=== PATIENT | female | born 1955 | race Caucasian/White ===

== ENCOUNTER 2022-06-07 09:26 | Outpatient (CLI) | payer OTHER | END 2022-06-07 09:36 | disposition home or self-care (01) | LOC: MAMO-SONO 09:26 | PROVIDERS: ATTEND Obstetrics & Gynecology | DX: N60.11 Diffuse cystic mastopathy of right breast (principal); N60.12 Diffuse cystic mastopathy of left breast; Z12.31 Encounter for screening mammogram for malignant neoplasm of breast ==

== ENCOUNTER 2022-06-28 11:18 | Outpatient (CLI) | payer OTHER | END 2022-06-28 11:23 | disposition home or self-care (01) | LOC: NUCLEAR 11:18 | PROVIDERS: ATTEND Obstetrics & Gynecology | DX: M81.0 Age-related osteoporosis without current pathological fracture (principal) ==

== ENCOUNTER 2022-11-13 23:11 | Emergency (ER) | payer OTHER ==
[~2022-11-13] VITALS: Ht 170.2 cm; Wt 90.7 kg
[2022-11-13] MEDS ORDERED: GLIMEPIRIDE2 M1 (23:24)
[2022-11-14] MEDS ORDERED: LEVSIN/SL0.125 MG SL (02:48)
[2022-11-14] MEDS ORDERED: PEPCID40 MG PO (02:48)
[2022-11-14] MEDS ORDERED: ONDANSETRON ODT4 MG PO (02:48)
[2022-11-14] MEDS ORDERED: MIRALAX510 GM PO (02:48)
== END 2022-11-14 03:10 ==
LOC: ER 23:11
DX: K29.70 Gastritis, unspecified, without bleeding (principal); R10.13 Epigastric pain; R11.0 Nausea; E11.9 Type 2 diabetes mellitus without complications; Z88.0 Allergy status to penicillin; R61 Generalized hyperhidrosis

== ENCOUNTER 2022-11-23 08:45 | Outpatient (CLI) | payer OTHER ==
[~2022-11-23 08:45] MED LIST: GLIMEPIRIDE2 M1; LEVSIN/SL0.125 MG SL; MIRALAX510 GM PO; ONDANSETRON ODT4 MG PO; PEPCID40 MG PO
== END 2022-11-23 08:51 | disposition home or self-care (01) ==
LOC: SONOGRAMA 08:45
PROVIDERS: ATTEND Internal Medicine Gastroenterology
DX: R10.9 Unspecified abdominal pain (principal)

== ENCOUNTER 2022-11-24 14:38 | Outpatient (CLI) | payer OTHER | END 2022-11-24 14:46 | disposition home or self-care (01) | LOC: RAD 14:38 | PROVIDERS: ATTEND Internal Medicine Pulmonary Disease | DX: R06.02 Shortness of breath (principal) ==

== ENCOUNTER 2024-04-10 10:31 | Outpatient (CLI) | payer OTHER | END 2024-04-10 10:42 | disposition home or self-care (01) | LOC: RAD 10:31 | PROVIDERS: ATTEND General Practice | DX: Z12.31 Encounter for screening mammogram for malignant neoplasm of breast (principal); I42.0 Dilated cardiomyopathy; Z13.820 Encounter for screening for osteoporosis ==

== ENCOUNTER 2024-08-22 11:32 | Outpatient (CLI) | payer OTHER | END 2024-08-22 11:37 | disposition home or self-care (01) | LOC: NUCLEAR 11:32 | DX: M85.80 Other specified disorders of bone density and structure, unspecified site (principal); M81.0 Age-related osteoporosis without current pathological fracture ==

== ENCOUNTER 2025-04-15 17:24 | Inpatient (IN) | payer OTHER ==
[~2025-04-15] VITALS: Ht 170.2 cm; Wt 95.3 kg
[2025-04-15] MEDS ORDERED: MOUNJARO2.5 MG/0.5 SUBCUTANEO (17:52)
[2025-04-15] MEDS ORDERED: GLIMEPIRIDE4 M1 PO (17:52)
[2025-04-15] MEDS ORDERED: LEVOTHYROXINE50 MCG PO (17:53)
[2025-04-15] MEDS ORDERED: ATORVASTATIN CA40 MG PO (17:53)
[2025-04-15] MEDS ORDERED: XANAX2 MG PO (17:54)
[2025-04-15] MEDS ORDERED: METOCLOPRAMIDE HCL 5 MG/ML VIAL IM STA (20:33)
[2025-04-15] MEDS ORDERED: 0.9 % SODIUM CHLORIDE 1,000 ML IV STA (20:33)
[2025-04-15] MEDS ORDERED: FAMOtidine 10 MG/ML (4ML VIAL) IV PUSH STA (20:34)
[2025-04-15] MEDS ORDERED: ONDANSETRON HCL 2 MG/ML VIAL IV STA (20:34)
[2025-04-15 21:26] LABS: BASO % 0.6 % (0.1-1.2); EOS # 0.13 (0.04-0.54); EOS % 2.0 % (0.7-7.0); LYMPH # 2.69 (1.18-3.74); LYMPH % 41.5 % (19.3-53.1); MEAN PLATELET VOLUME 10.80 fl (9.4-12.4); MONO # 0.45 (0.24-0.82); MONO % 6.9 % (4.7-12.5); NEUT # 3.15 (1.56-6.13); NEUT % 48.7 % (34.0-71.1); RED CELL DISTRIBUTION WIDTH 13.0 % (11.6-14.4)
[2025-04-15 22:04] LABS: ALT/SGPT 45.0 U/L (12-78); AST/SGOT 32.0 U/L (15-37); BILIRUBIN TOTAL 0.87 mg/dL (0.3-1.2); BUN CREA RATIO 10.0 (7.0-25.0); CREATININE SERUM 0.79 mg/dL (0.55-1.02); GFR 72.16; GLOBULINA 4.2 G/DL (2.4-3.5); GLUCOSE FASTING 105.0 mg/dL (65-100); OSMOLALITY SERUM 280.0 MOSM/KG (275-295)
[2025-04-16] MEDS ORDERED: LACTOBACILLUS ACIDOPHILUS 1 CAP CAP PO STA (01:30)
[2025-04-16] MEDS ORDERED: CIPROFLOXACIN IN 5 % DEXTROSE 200 ML IV SCH ×2 (03:31→17:00)
[2025-04-16] MEDS ORDERED: FAMOTIDINE/PF 20 MG/2 ML VIAL IV PUSH STA (03:32)
[2025-04-16] MEDS ORDERED: PROMETHAZINE HCL 50 MG/ML AMPUL IM STA (03:32)
[2025-04-16] MEDS ORDERED: MORPHINE SULFATE 4 MG/ML VIAL IV STA (03:32)
[2025-04-16] MEDS ORDERED: METRONIDAZOLE/SODIUM CHLORIDE 500 MG/100 ML PIGGYBACK IV SCH (05:00)
[2025-04-16] MEDS ORDERED: PANTOPRAZOLE SODIUM 40 MG/VIAL VIAL IV ONE (11:30)
[2025-04-16] MEDS ORDERED: HYOSCYAMINE SULFATE 0.125 MG TAB.SUBL SL ONE (11:30)
[2025-04-16] MEDS ORDERED: KETOROLAC TROMETHAMINE 30 MG VIAL IV ONE (11:30)
[2025-04-16] MEDS ORDERED: FAMOTIDINE/PF 20 MG in 0.9 % SODIUM CHLORIDE 8 ML IV PUSH SCH (17:52)
[2025-04-16] MEDS ORDERED: ACETAMINOPHEN 500 MG GEL..CAP PO PRN (18:00)
[2025-04-16] MEDS ORDERED: MORPHINE SULFATE 2 MG/ML CARTRIDGE IV PRN (18:00)
[2025-04-16] MEDS ORDERED: INSULIN LISPRO 1,000 UNIT/10 ML UNITS SUBCUTANEO PRN (18:00)
[2025-04-16] MEDS ORDERED: MORPHINE SULFATE 2 MG/ML CARTRIDGE IV ONE (18:00)
[2025-04-16] MEDS ORDERED: 0.9 % SODIUM CHLORIDE 1,000 ML IV SCH (18:00)
[2025-04-16] MEDS ORDERED: KETOROLAC TROMETHAMINE 15 MG VIAL IU ONE (18:00)
[2025-04-16] MEDS ORDERED: ONDANSETRON HCL 4 MG in 0.9 % SODIUM CHLORIDE 50 ML IV PRN (18:00)
[2025-04-16] MEDS ORDERED: DEXTROSE 50 % IN WATER 0.5 G/ML DISP.SYRIN IV PRN (18:00)
[2025-04-16 20:17] LABS: INR 1.05
[2025-04-16 20:26] VITALS: BP 150/62; O2SAT 97
[2025-04-16 21:00] VITALS: BP 149/68; O2SAT 100
[2025-04-17 00:27] LABS: URINE APPEARANCE Clear; URINE BILIRRUBIN Negative (NEGATIVE); URINE BLOOD Small; URINE COLOR Yellow; URINE GLUCOSE Negative (NEGATIVE); URINE KETONE 15 (NEGATIVE); URINE LEUKOCYTE Trace; URINE NITRATE Negative; URINE PROTEIN Negative (NEGATIVE); URINE UROBILINOGEN 0.2 E.U./dl
[2025-04-17 00:30] LABS: URINE BACTERIA 16.7 uL (0.0-1933); URINE EPITHELIAL CELLS 19.3 uL (0.0-38.8); URINE RBC 12.0 uL (0.0-20.8); URINE WBC 29.0 uL (0.0-23.2)
[2025-04-17 01:21] LABS: URINE CAST 0.14 uL (0.0-1.40)
[2025-04-17 01:59] VITALS: BP 132/62
[2025-04-17] MEDS ORDERED: LEVOTHYROXINE SODIUM 50 MCG TABLET PO SCH (06:00)
[2025-04-17] MEDS ORDERED: ATORVASTATIN CALCIUM 40 MG TABLET PO SCH (09:00)
[2025-04-17] MEDS ORDERED: CIPROFLOXACIN IN 5 % DEXTROSE 200 ML IV SCH (09:00)
[2025-04-17 09:31] VITALS: BP 135/72; O2SAT 95
[2025-04-17 18:42] VITALS: BP 143/70; O2SAT 98
[2025-04-17] MEDS ORDERED: FAMOTIDINE/PF 20 MG in 0.9 % SODIUM CHLORIDE 8 ML IV PUSH SCH (21:00)
[2025-04-18 02:45] VITALS: BP 163/74; O2SAT 98
[2025-04-18 09:44] VITALS: BP 133/73; O2SAT 99
[2025-04-18 11:50] LABS: BUN CREA RATIO 6.0 (7.0-25.0); CREATININE SERUM 0.68 mg/dL (0.55-1.02); GFR 85.79; GLUCOSE FASTING 105.0 mg/dL (65-100); OSMOLALITY SERUM 284.0 MOSM/KG (275-295)
[2025-04-18 19:30] VITALS: BP 144/78; O2SAT 96
[2025-04-19 02:55] VITALS: BP 146/72; O2SAT 99
[2025-04-19 10:29] VITALS: BP 109/63; O2SAT 98
[2025-04-19 17:09] VITALS: BP 144/75; O2SAT 98
[2025-04-20 02:25] VITALS: BP 124/76; O2SAT 98
[2025-04-20 10:00] VITALS: BP 112/61; O2SAT 97
[2025-04-20 17:36] VITALS: BP 109/68; O2SAT 99
[2025-04-20] MEDS ORDERED: LACTOBACILLUS ACIDOPHILUS 1 CAP CAP PO SCH (19:15)
[2025-04-21 02:59] VITALS: BP 161/82; O2SAT 98
[2025-04-21 08:59] VITALS: BP 155/78; O2SAT 98
[2025-04-21] MEDS ORDERED: ENOXAPARIN SODIUM 40 MG/0.4 ML SYRINGE SUBCUTANEO SCH (09:58)
[2025-04-21 12:51] LABS: BASO % 0.5 % (0.1-1.2); EOS # 0.18 (0.04-0.54); EOS % 4.2 % (0.7-7.0); LYMPH # 1.99 (1.18-3.74); LYMPH % 46.6 % (19.3-53.1); MEAN PLATELET VOLUME 10.60 fl (9.4-12.4); MONO # 0.31 (0.24-0.82); MONO % 7.3 % (4.7-12.5); NEUT # 1.77 (1.56-6.13); NEUT % 41.4 % (34.0-71.1); RED CELL DISTRIBUTION WIDTH 13.0 % (11.6-14.4)
[2025-04-21 13:44] LABS: ALT/SGPT 56.0 U/L (12-78); AST/SGOT 74.0 U/L (15-37); BILIRUBIN TOTAL 0.78 mg/dL (0.3-1.2); BUN CREA RATIO 6.0 (7.0-25.0); CREATININE SERUM 0.68 mg/dL (0.55-1.02); GFR 85.79; GLOBULINA 3.3 G/DL (2.4-3.5); GLUCOSE FASTING 158.0 mg/dL (65-100); OSMOLALITY SERUM 283.0 MOSM/KG (275-295)
[2025-04-21 18:03] VITALS: BP 121/67; O2SAT 97
[2025-04-22 01:04] VITALS: BP 140/80; O2SAT 98
[2025-04-22] MEDS ORDERED: ONDANSETRON HCL 4 MG in 0.9 % SODIUM CHLORIDE 50 ML IV PRN (02:30)
[2025-04-22 08:38] VITALS: BP 121/63; O2SAT 98
== END 2025-04-22 12:27 | disposition home or self-care (01) | DRG 392 ==
LOC: ER 17:24 → MEDJ 04-16 18:00
PROVIDERS: General Practice; Internal Medicine Infectious Disease; ADMIT Student in an Organized Health Care Education/Training Program; ATTEND Student in an Organized Health Care Education/Training Program
PROC: BW21YZZ Computerized Tomography (CT Scan) of Abdomen and Pelvis using Other Contrast (ICD-10-PCS; principal; 2025-04-15)
DX: K57.92 Diverticulitis of intestine, part unspecified, without perforation or abscess without bleeding (principal); E11.9 Type 2 diabetes mellitus without complications; Z79.4 Long term (current) use of insulin

== ENCOUNTER → 2025-05-26 | Outpatient (CLI) | payer OTHER ==
[~2025-05-26] MED LIST changes: +ATORVASTATIN CA40 MG PO; +GLIMEPIRIDE4 M1 PO; +LEVOTHYROXINE50 MCG PO; +MOUNJARO2.5 MG/0.5 SUBCUTANEO; +XANAX2 MG PO
== END | disposition home or self-care (01) ==
LOC: SONOGRAMA 11:33
DX: E03.9 Hypothyroidism, unspecified (principal)

== ENCOUNTER 2025-07-09 13:21 | Outpatient (CLI) | payer OTHER | END 2025-07-09 13:25 | disposition home or self-care (01) | LOC: MAMO-SONO 13:21 | PROVIDERS: ATTEND Psychiatry & Neurology Psychiatry | DX: I70.0 Atherosclerosis of aorta (principal); Z12.31 Encounter for screening mammogram for malignant neoplasm of breast; R52 Pain, unspecified ==